=== PATIENT | male | born 1970 | race Caucasian/White ===

== ENCOUNTER 2017-01-12 21:36 | Emergency (ER) | payer SELFPAY ==
--- NOTE | 2017-01-12 22:06 | C.PDOC ---
History Of Present Illness 46 y/o M p/w epistaxis. Patient states he had bleeding from the R nostril 3 times today, the first two times lasting a few minutes but the last time lasting 1 hour. He states it would not stop while he was holding his nose but now that he is in the ER, it has stopped. He denies trauma, blood thinners, chest pain, lightheadedness, palpitations, dyspnea. Denies history of anemia. Time Seen by Provider: 01/12/17 21:59 Chief Complaint (Nursing): ENT Problem Past Medical History Vital Signs: Last Vital Signs Temp 98.4 F 01/12/17 22:20 Pulse 88 01/12/17 22:20 Resp 16 01/12/17 22:20 BP 107/71 01/12/17 22:20 Pulse Ox 99 01/12/17 22:20 - [facility] Procedures CLOSURE SKIN & SUBCUTANEOUS NEC (05/09/14) Family History: States: Unknown Family Hx - Social History Hx Tobacco Use: No Hx Alcohol Use: No Hx Substance Use: No - Immunization History Hx Tetanus Toxoid Vaccination: No Review Of Systems Except As Marked, All Systems Reviewed And Found Negative. Cardiovascular: Negative for: Palpitations Respiratory: Negative for: Shortness of Breath Physical Exam - Physical Exam Appears: No Acute Distress Head: Normacephalic Nose: No Deformity, No Tenderness, No Septal Hematoma Oral Mucosa: Moist Cardiovascular: No Murmur Respiratory: No Accessory Muscle Use ED Course And Treatment O2 Sat by Pulse Oximetry: 98 Medical Decision Making Medical Decision Making: I instructed the patient on how to hold pressure for epistaxis and informed him that if the bleeding does not cease afterwards, to return to the ER for nasal packing. Otherwise, without any symptoms of blood loss, may take care at home. Disposition - Disposition Disposition: HOME/ ROUTINE Disposition Time: 22:06 Condition: STABLE Instructions: Nosebleed (ED) - Clinical Impression Clinical Impression: Epistaxis
[2017-01-12 22:21] VITALS: BP 107/71; PULSE 88; RESP 16; TEMP 98.4
[2017-01-14 10:16] VITALS: O2SAT 98
== END 2017-01-12 22:44 | disposition home or self-care (01) ==
LOC: C.ER 21:36
DX: R04.0 Epistaxis (principal)